=== PATIENT | male | born 1970 | race African-American/Black ===

== ENCOUNTER 2016-11-30 11:23 | Emergency (ER) | payer SELFPAY ==
[~2016-11-30] VITALS: Ht 188 cm; Wt 74.8 kg
[2016-11-30] MEDS ORDERED: Acetaminophen 500mg (ES) tab ORAL ONE (12:15)
[2016-11-30] MEDS ORDERED: Ipratropium 0.02% Inh Soln 2.5ml UD HHN ONE (12:15)
[2016-11-30] MEDS ORDERED: Albuterol ud Inhalation HHN ONE (12:15)
--- NOTE | 2016-11-30 12:22 | Emergency Room Report ---
History of Present Illness General Chief Complaint: Fever Present Illness HPI The patient is a 46-year-old male with a history of asthma presenting for 3 days of cough, fevers, and total body pain. He also admits to chills. Denies any sick contacts or recent travel. He also notes a feeling of shortness of breath. Total body pain described as an 8/10 dull ache. No known provoking relieving factors. She denies any other symptoms including rash, neck pain or stiffness, abdominal pain, dysuria, hemoptysis, vomiting, diarrhea Allergies: Coded Allergies: SULFAMETHOXAZOLE (Verified Allergy, Severe, Shortness of Breath, 11/30/16) TRIMETHOPRIM (Verified Allergy, Severe, Shortness of Breath, 11/30/16) Patient History Past Medical History: see triage record Pertinent Family History: none Reviewed Nursing Documentation: PMH: Agreed, PSxH: Agreed Review of Systems All Other Systems: negative except mentioned in HPI Physical Exam Vital Signs Date Time Temp Pulse Resp B/P Pulse Ox O2 Delivery O2 Flow Rate FiO2 11/30/16 11:50 102.2 106 36 121/76 100 Room Air Sp02 EP Interpretation: reviewed, normal General Appearance: no apparent distress, alert, GCS 15, non-toxic Head: normocephalic, atraumatic Eyes: bilateral eye PERRL, bilateral eye normal inspection ENT: hearing grossly normal, normal pharynx, no angioedema, normal voice, uvula midline Neck: full range of motion, supple/symm/no masses Respiratory: normal inspection, no respiratory distress, no accessory muscle use, wheezing - bilat diffuse Cardiovascular #1: no edema, no gallop, no murmur, no rub, tachycardia Gastrointestinal: normal bowel sounds, non tender, soft, non-distended, no guarding, no rebound Genitourinary: normal inspection, no CVA tenderness Musculoskeletal: back normal, gait/station normal, normal range of motion, non- tender Neurologic: alert, oriented x3, responsive, motor strength/tone normal, sensory intact, speech normal Psychiatric: judgement/insight normal, memory normal, mood/affect normal, no suicidal/homicidal ideation Skin: normal color, no rash, warm/dry, well hydrated Lymphatic: no adenopathy Medical Decision Making PA Attestation Dr. Go is my supervising physician. Patient management was discussed with my supervising physician Diagnostic Impression: Primary Impression: Acute bronchitis Qualified Codes: J20.9 - Acute bronchitis, unspecified ER Course The patient is a 46 yo M presenting with SOB, cough, and fevers Differential diagnosis include but not limited to pharyngitis, sinusitis, AOM, bronchitis, PNA PE: The patient is febrile and tachycardic. No TTP over maxillary or frontal sinuses. Lungs: diffuse wheezing. No accessory muscle use. No resp distress Heart:tachycardia, no abnormal heart sounds Ears: external auditory canal clear. Non erythematous. Bilat TM intact. Cone of light present bilat. No bulging of TM. No serous fluid seen. no nasal D/C No cervical lymphad No tonsillar exudate. Uvula midline.Oropharynx non erythematous CXR unremarkable He is given a breathing tx and tylenol and feels better. Vitals signs have all improved. The patient will be discharged home with a prescription for albuterol, prednisone, and cough medications. ER precautions given Chest X-Ray Diagnostic Results Chest X-Ray Diagnostic Results : Chest X-Ray Ordered: Yes # of Views/Limited/Complete: 1 View Indication: Chest Pain EP Interpretation: Yes Interpretation: no consolidation, no effusion, no pneumothorax, no acute cardiopulmonary disease Impression: No acute disease Interpreting ER Provider: Dr. Donavan GILES Scribe Text I am acting as scribe for my supervising physician. My supervising physician's interpretation of the chest xrays are there is no consolidation, no effusion, no acute cardiopulmonary disease, no pneumothorax Last Vital Signs Date Time Temp Pulse Resp B/P Pulse Ox O2 Delivery O2 Flow Rate FiO2 11/30/16 11:50 102.2 106 36 121/76 100 Room Air Status: improved Disposition: HOME, SELF-CARE Condition: Improved Scripts Prednisone* (PREDNISONE*) 20 Mg Tablet 20 MG ORAL DAILY, #5 TAB 0 Refills Prov: TERZIAN,MARIBEL P.A. 11/30/16 Albuterol Sulfate* (PROAIR HFA*) 8.5 Gm Hfa.aer.ad 2 PUFFS INH Q6H, #8.5 GM 0 Refills Prov: TERZIAN,MARIBEL P.A. 11/30/16 Promethazine Hcl (PROMETHAZINE HCL*) 6.25 Mg/5 Ml Syrup 5 ML ORAL Q8H, #120 ML 0 Refills Prov: TERZIAN,MARIBEL P.A. 11/30/16 Ibuprofen* (MOTRIN*) 600 Mg Tablet 600 MG ORAL Q8H Y for For Pain, #30 TAB 0 Refills Prov: MARIBEL SCHULTZ 11/30/16 MARIBEL SCHULTZ Nov 30, 2016 12:22
[2016-11-30] MEDS ORDERED: PROAIR HFA8.5 GM INH (13:09)
[2016-11-30] MEDS ORDERED: PROMETHAZI6.25 MG/1 ORAL (13:09)
[2016-11-30] MEDS ORDERED: IBUPROFEN600 MG ORAL (13:09)
[2016-11-30] MEDS ORDERED: PREDNISONE20 MG ORAL (13:09)
[2016-11-30 13:10] VITALS: BP 119/64
[2016-11-30 13:21] VITALS: BP 120/80
--- NOTE | 2016-11-30 13:42 | Diagnostic Imaging Report ---
Indication: COUGH hours of breath Technique: One view of the chest Comparison: none Findings: The heart is borderline enlarged. Lungs and pleural spaces are clear. Impression: Borderline cardiomegaly No acute process
== END 2016-11-30 13:05 | disposition home or self-care (01) ==
LOC: EMR 12:30
DX: J20.9 Acute bronchitis, unspecified (principal); Z88.2 Allergy status to sulfonamides; Z88.8 Allergy status to other drugs, medicaments and biological substances; R00.0 Tachycardia, unspecified; I51.7 Cardiomegaly
CPT/HCPCS: 71010; 94640; 94664; 99284